=== PATIENT | male | born 1945 | race Caucasian/White ===

== ENCOUNTER → 2019-10-11 09:02 | Outpatient (CLI) | payer MEDICARE, OTHER, SELFPAY ==
[2019-09-27 06:51] VITALS: BMI 26.2
[2019-10-11 09:50] VITALS: PULSE 100; PULSE 80; PULSE 81; PULSE 94; PULSE 95; PULSE 96; O2SAT 92; O2SAT 93; O2SAT 94; O2SAT 97
--- NOTE | 2019-10-11 14:29 | WT_ITS ---
PSN 6 Minute Walk Test - 6 Minute Walk Test 6 Minute Walk Test: 6 Minute Walk Test PSN:6-Minute Walk Test Start: 10/11/19 09:50 Freq: Status: Active Protocol: [id number] Document 10/11/19 09:50 [facility] (Rec: 10/11/19 09:55 [facility] [id number]) 6 Minute Walk Test Date Performed 10/11/19 Time Performed 09:30 Height 5 ft 9 in Weight: 78.471 kg Weight in Pounds 173.[address]: Devonte Manzano Assistive device used: None Pre-test Oxygen Delivery Method Room Air Pulse Ox (%) 97 Pulse Rate (60-100 beats/min) 80 Dyspnea Sonu Scale (0-10) 0 1st minute Oxygen Delivery Method Room Air Pulse Ox (%) 94 Pulse Rate (60-100 beats/min) 94 Dyspnea Sonu Scale (0-10) 0 Number of Rests Taken 0 2nd minute Oxygen Delivery Method Room Air Pulse Ox (%) 92 Pulse Rate (60-100 beats/min) 95 Dyspnea Sonu Scale (0-10) 0 Number of Rests Taken 0 3rd minute Oxygen Delivery Method Room Air Pulse Ox (%) 92 Pulse Rate (60-100 beats/min) 96 Dyspnea Sonu Scale (0-10) 0 Number of Rests Taken 0 4th minute Oxygen Delivery Method Room Air Pulse Ox (%) 94 Pulse Rate (60-100 beats/min) 94 Dyspnea Sonu Scale (0-10) 0 Number of Rests Taken 0 5th minute Oxygen Delivery Method Room Air Pulse Ox (%) 94 Pulse Rate (60-100 beats/min) 100 Dyspnea Sonu Scale (0-10) 0 Number of Rests Taken 0 6th minute Oxygen Delivery Method Room Air Pulse Ox (%) 93 Pulse Rate (60-100 beats/min) 96 Dyspnea Sonu Scale (0-10) 0 Number of Rests Taken 0 Post-test Oxygen Delivery Method Room Air Pulse Ox (%) 97 Pulse Rate (60-100 beats/min) 81 Dyspnea Sonu Scale (0-10) 0 Full Laps Walked 17 Partial Lap, Number of Tiles Walked 27 Total Distance Walked (ft) 1030 - Interpretation Interpretation: The patient was able to ambulate 1030 feet over the course of 6 minutes on room air with no assistive devices or breaks. The patient did experience significant desaturation from a baseline of 97% to as low as 92%. No significant tachycardia was noted. These findings are consistent with a respiratory limit ation exercise tolerance. - Recommendations Recommendations: No supplemental oxygen is indicated at this time, but patient will need to be followed closely given level of desaturation.
== END ==
PROVIDERS: PCP Family Medicine; Referring Provider Internal Medicine Critical Care Medicine; Visit Provider Internal Medicine Critical Care Medicine
DX: J44.9 Chronic obstructive pulmonary disease, unspecified (principal)
CPT/HCPCS: 94618

== ENCOUNTER → 2019-10-12 07:56 | Outpatient (CLI) | payer MEDICARE, OTHER, SELFPAY ==
[2019-09-27 06:51] VITALS: BMI 26.2
--- NOTE | 2019-10-13 07:07 | PFT ---
INTRODUCTION: The patient is a 74-year-old male that presents for pulmonary function studies secondary to a diagnosis of COPD. Respiratory therapy reports good patient effort. Bronchodilators were used during testing. INTERPRETATION: Forced expiration spirometry demonstrates the presence of a mild large airways obstructive ventilatory defect. There was no significant response to aerosolized bronchodilators. Spirograms are of good quality and do not plateau indicating slow emptying of the lungs. Body plus tomography was performed and reveals lung volumes to be within normal limits. Diffusing capacity by single breath CO is within normal limits. IMPRESSION: Isolated irreversible mild large airways obstructive ventilatory defect with preserved lung volumes and diffusing capacity.
== END ==
PROVIDERS: PCP Family Medicine; Referring Provider Internal Medicine Critical Care Medicine; Visit Provider Internal Medicine Critical Care Medicine
DX: J44.9 Chronic obstructive pulmonary disease, unspecified (principal)
CPT/HCPCS: 94060; 94726; 94729

== ENCOUNTER → 2019-10-16 20:10 | Outpatient (CLI) | payer MEDICARE, OTHER, SELFPAY ==
[2019-09-27 06:51] VITALS: BMI 26.2
== END ==
PROVIDERS: PCP Family Medicine; Referring Provider Internal Medicine Critical Care Medicine; Visit Provider Internal Medicine Critical Care Medicine
DX: G47.33 Obstructive sleep apnea (adult) (pediatric) (principal)
CPT/HCPCS: 95811

== ENCOUNTER → 2019-10-25 11:25 | Outpatient (CLI) | payer MEDICARE, OTHER, SELFPAY ==
[2019-10-25 10:42] VITALS: BMI 25.1
[2019-10-25 13:24] LABS: AST(SGOT) 17 U/L (15-37); Alanine Aminotransfer ALT/SGPT 34 U/L (12-78); Albumin, Serum 4.1 g/dL (3.4-5.0); Alkaline Phosphatase 104 U/L (50-136); Bilirubin, Direct 0.22 mg/dL (0.00-0.30); Cholesterol 103 mg/dL (200); Globulin 4.3 g/dL (2.3-3.5); High Density Lipoprotein 32 mg/dL; Protein, Total 8.4 g/dL (6.4-8.2); Triglycerides 199 mg/dL; Very Low Density Lipoprotein 40 mg/dL (5-40)
== END ==
PROVIDERS: PCP Family Medicine; Referring Provider Internal Medicine Cardiovascular Disease; Visit Provider Internal Medicine Cardiovascular Disease
DX: I25.10 Atherosclerotic heart disease of native coronary artery without angina pectoris (principal); E78.5 Hyperlipidemia, unspecified
CPT/HCPCS: 36415; 80061; 80076

== ENCOUNTER → 2019-11-20 06:18 | Outpatient (CLI) | payer MEDICARE, OTHER, SELFPAY ==
[2019-10-26 07:37] VITALS: BMI 27.6
--- NOTE | 2019-11-20 06:19 | ECHOD_ITS ---
Reason For Study: S/P CABG Procedure This was a 2D Doppler, Color Flow transthoracic echocardiogram. Exam performed in department. Left Ventricle Normal LV size. The estimated ejection fraction is 55 %. Normal diastology for age. No regional wall motion abnormalities noted. Right Ventricle Normal RV size. Normal systolic function. Atria Normal left atrium. The right atrium is mildly enlarged. Mitral Valve Normal mitral valve. Tricuspid Valve Normal tricuspid valve. Mild tricuspid valve insufficiency. Pulmonary artery systolic pressure is 25 mmHg. Aortic Valve The aortic valve is not well visualized. Pulmonic Valve Normal pulmonic valve. Great Vessels Normal aortic root. Pericardium/Pleural No pericardial effusion. MMode/2D Measurements & Calculations LVIDd: 4.8 cm IVSd: 1.2 cm Ao root diam: 3.4 cm LVIDs: 2.7 cm LVPWd: 1.1 cm FS: 44.3 % LAV(MOD-bp): 60.2 ml LA A4 area: 18.5 cm2 RA A4 area: 22.1 cm2 LAV(MOD-bp) Indexed: 31.2 ml/m2 LAV(MOD-sp2): 56.9 ml LAV(MOD-sp4): 50.1 ml Time Measurements MV dec time: 0.22 sec Doppler Measurements & Calculations MV E max flo: 78.5 cm/sec Lat Peak E' Flo: 14.5 cm/sec Med Peak E' Flo: 5.2 cm/sec MV A max flo: 56.2 cm/sec E/E' lat: 5.4 E/E' med: 15.0 MV E/A: 1.4 MV V2 max: 84.1 cm/sec MV P1/2t max flo: 84.1 cm/sec Ao V2 max: 111.1 cm/sec MV max P.8 mmHg MV P1/2t: 134.3 msec Ao max P.9 mmHg MV V2 mean: 42.5 cm/sec MV dec slope: 183.5 cm/sec2 MV mean P.89 mmHg MVA(P1/2t): 1.6 cm2 MV V2 VTI: 30.6 cm LV V1 max: 103.0 cm/sec PA V2 max: 112.7 cm/sec TR max flo: 230.8 cm/sec LV V1 max P.2 mmHg TR max P.3 mmHg Interpretation Summary Normal LV size. The estimated ejection fraction is 55 %. Normal diastology for age. Structurally normal valves. Ordering Physician: Greyson Doe Referring Physician: J Luis Cuevas Performed By: Man Nieves RCS
--- NOTE | 2019-11-20 17:15 | STRESSREP_ITS ---
Stress Test Report Pharmacologic myocardial perfusion stress test. 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 Stress protocol: Resting EKG demonstrates normal sinus rhythm with a rate of 55 bpm and a right bundle branch block. Resting blood pressure is 120/64 mmHg. 0.4 mg of regadenoson was infused per usual protocol followed by rapid intravenous saline flush injection continuous EKG monitoring was performed. Patient maintained sinus rhythm throughout the recording. At rest there were no ST or T wave changes noted to suggest abnormal flow reserve. The resting blood pressure was 120/64 with a final blood pressure 118/60. Myocardial perfusion protocol. 11.4 mCi of technetium 99m sestamibi was injected at rest. 0.4 mg of regadenoson was infused per usual protocol peak infusion 33.9 mCi of technetium 99m sestamibi was injected stress images were obtained stress and rest images were reconstructed and compared in the short axis vertical long horizontal long axis. Gated images were also obtained Perfusion SPECT analysis: Review of the stress images demonstrate normal uptake of tracer noted in the septum anterior wall and lateral wall. The basal to mid inferior wall has reduced perfusion on the stress images and present on the resting images. The above is suggestive of a basal inferior infarct. There is minimal if any pollo- infarct ischemia noted. Gated SPECT analysis: The gated ejection fraction is 68%. Conclusion: Pharmacologic myocardial perfusion stress test with evidence of previous basal inferior infarct. Minimally low risk pollo-infarct ischemia present. Preserved ejection fraction.
== END ==
PROVIDERS: PCP Family Medicine; Referring Provider Internal Medicine Cardiovascular Disease; Visit Provider Internal Medicine Cardiovascular Disease
DX: I25.10 Atherosclerotic heart disease of native coronary artery without angina pectoris (principal); I25.2 Old myocardial infarction
CPT/HCPCS: 78452; 93017; 93306; A9500; A4216; J2785